=== PATIENT | male | born 1995 | race Caucasian/White ===

== ENCOUNTER 2016-05-07 16:31 | Emergency (ER) | payer OTHER ==
[~2016-05-07] VITALS: Ht 170.2 cm; Wt 64.8 kg
[2016-05-07 16:33] VITALS: BP 133/83; PULSE 113; TEMP 37; O2SAT 97; Ht 170.2 cm; Wt 64.8 kg
[2016-05-07] MEDS ORDERED: MULT-513 PO (16:40)
[2016-05-07] MEDS ORDERED: MUCINEX PO (16:40)
[2016-05-07] MEDS ORDERED: AMOX500C3 PO (17:33)
[2016-05-07] MEDS ORDERED: AMOXICILLIN 250 MG CAP PO STA (17:33)
--- NOTE | 2016-05-07 17:33 | EMERGENCY ROOM VISIT NOTE ---
ED Visit Note First contact with patient: 16:49 Chief Complaint: Sore/Swollen Throat, Stuffed Nose, Cough History of Present Illness: Patient is a 20-year-old male who presents to the emergency department by private vehicle for evaluation of his nasal congestion and sore throat. The patient reports that his symptoms developed approximately 48 hours ago. He reports he initially started with a sore throat and nasal congestion. He has had a mild nonproductive his cough as well recently. The patient reports a significant past medical history of strep throat infections. He had a tonsillectomy performed several years ago. The patient denies any fevers. He does report feeling chilled. He denies any recent sick contacts. He rates his current discomfort as a 6/10. He denies any headaches, dizziness, lightheadedness, neck pain/stiffness, nausea, vomiting, chest pain, palpitations , shortness of breath. Medications: No current medications. Allergies: Hydrocortisone PMH: As above. SHx: Patient is a 20-year-old male who lives locally. ROS: All pertinent positive and negative review of systems are appropriately documented in the History of Present Illness. Physical Exam: VITAL SIGNS - Vital signs and nursing notes were reviewed. GENERAL - Well nourished, well developed 20-year-old male in no acute distress. Pt communicates well with provider and answers questions appropriately. SKIN - Without rash. HEAD - NC/AT with no obvious deformities. EYES - PERRL with EOMI bilaterally. Sclera without injection. Palpebral conjunctiva pink and moist. EARS - No deformities of external structures noted on gross examination bilaterally. No pain elicited with palpation of the tragus bilaterally. External auditory canals without discharge or otorrhea. Tympanic membranes pearly thakkar without retraction or bulging. No fluid or purulent material visualized behind the TM. Handle of malleus, umbo, cone of light, pars tensa/ flaccid all easily visualized. NOSE - Midline and without cyanosis. No purulent drainage noted. Nasal mucosa without mucus discharge. MOUTH/OROPHARYNX - Without perioral cyanosis. Buccal mucosa pink and moist and without leukoplakia. Tongue midline with no palate deviation. No tonsillar hypertrophy appreciated. No kissing tonsils. No trismus. Moderate erythema and hyperemia noted to the posterior oropharynx. Good dentition noted. No muffled voice. NECK - Neck with FROM. Supple to palpation. No lymphadenopathy noted. No nuchal rigidity. ED Course: Patient was seen and evaluated by myself. Rapid strep was obtained. Rapid strep was found to be negative. I did have a lengthy discussion with the patient regarding his ongoing symptoms. The patient does have a significant past medical history of strep. Strep culture is pending at this point, however given the patient's physical exam findings, I'm concerned that the patient is likely going to grow out strep. He'll be covered prophylactically with amoxicillin orally. He'll follow-up with his primary care provider from today' s visit or return for any changing/worsening symptoms. Patient discharged home afebrile and in good condition. In the evaluation and treatment of this patient, the following differential diagnoses were considered: Strep, mono, retropharyngeal abscess, peritonsillar abscess, amongst others. Impression: Pharyngitis, Viral URI Discharge Instructions: You were seen in the emergency department for your sore throat. The results of your rapid strep screen were found to be NEGATIVE. You will be contacted in 48- 72 hrs with the results of your pending strep culture. You were prescribed Amoxicillin to be taken as prescribed. This is an antibiotic. All antibiotics have the potential to cause diarrhea. Stop this medication and contact a medical provider if you were to develop any significant adverse side effects including: wheezing, shortness of breath, passing out, vomiting, or a diffuse rash. Always take antibiotics as directed and COMPLETE the ENTIRE course regardless of the improvement of your symptoms. For pain and fever control, you can use the following [id number]-xiomree medicines (if >12 yo): - Regular strength (325mg/tab) Tylenol (acetaminophen) 2 tabs every 4-6 hours as needed. Do not exceed 12 tablets in a 24 hour period. Avoid taking more than 4 grams (4000 mg) of Tylenol per day. This includes any other sources of acetaminophen you may take on a regular basis. - Regular strength (200 mg/tab) Advil (ibuprofen) 1-2 tabs every 4-6 hours as needed. Do not exceed a dose of 3200 mg per day. - For best results, alternate dosing of Tylenol and Advil. In addition to your prescribed medications, you can also use the following home remedies: - Warm salt-water gargles 3 times per day can soothe your throat and help to fight infection. - Warm tea with honey can soothe your throat. Return to the emergency department if your symptoms persist or worsen over the next 2-3 days despite treatment course outlined above. Return to the emergency department if you develop the following symptoms of: inability to swallow solids , liquids, or drool; excessive wheezing or inability to catch your breath; or intractable fever or pain. Follow up with your primary care provider in 2-3 days from today's emergency department visit. Problem List Surgical Problems: (1) History of tonsillectomy Status: Resolved Current/Historical Medications Scheduled Amoxicillin (Amoxil), 500 MG PO TID Multivitamins/Minerals (Mvi With Minerals), 1 TAB PO DAILY [Mucinex Liq], 1 DOSE PO PRN UD Allergies Coded Allergies: Hydrocortisone (Verified Allergy, Unknown, Unknown, 11/23/15) Reported by sister Vital Signs Date Time Temp Pulse Resp B/P Pulse Ox O2 Delivery O2 Flow Rate FiO2 05/07/16 16:33 37.0 113 18 133/83 97 Room Air Medications Administered Medications (Trade) Dose Ordered Sig/Vianney Route Start Time Stop Time Status Last Admin Dose Admin Amoxicillin (Amoxil Cap) 500 mg NOW STAT PO 05/07/16 17:33 05/07/16 17:34 DC 05/07/16 17:37 500 MG Departure Information Impression Primary Impression: Pharyngitis Additional Impression: Viral URI Dispostion Home / Self-Care Condition GOOD Prescriptions Amoxicillin (AMOXIL) 500 Mg Cap 500 MG PO TID for 10 Days, #30 CAP Prov: Gregor Aponte PA-C 05/07/16 Referrals No Doctor, Assigned (PCP) Patient Instructions ED Pharyngitis Viral Report Pending, My [facility] Additional Instructions You were seen in the emergency department for your sore throat. The results of your rapid strep screen were found to be NEGATIVE. You will be contacted in 48- 72 hrs with the results of your pending strep culture. You were prescribed Amoxicillin to be taken as prescribed. This is an antibiotic. All antibiotics have the potential to cause diarrhea. Stop this medication and contact a medical provider if you were to develop any significant adverse side effects including: wheezing, shortness of breath, passing out, vomiting, or a diffuse rash. Always take antibiotics as directed and COMPLETE the ENTIRE course regardless of the improvement of your symptoms. For pain and fever control, you can use the following [id number]-ijo-hmvwehx medicines (if >12 yo): - Regular strength (325mg/tab) Tylenol (acetaminophen) 2 tabs every 4-6 hours as needed. Do not exceed 12 tablets in a 24 hour period. Avoid taking more than 4 grams (4000 mg) of Tylenol per day. This includes any other sources of acetaminophen you may take on a regular basis. - Regular strength (200 mg/tab) Advil (ibuprofen) 1-2 tabs every 4-6 hours as needed. Do not exceed a dose of 3200 mg per day. - For best results, alternate dosing of Tylenol and Advil. In addition to your prescribed medications, you can also use the following home remedies: - Warm salt-water gargles 3 times per day can soothe your throat and help to fight infection. - Warm tea with honey can soothe your throat. Return to the emergency department if your symptoms persist or worsen over the next 2-3 days despite treatment course outlined above. Return to the emergency department if you develop the following symptoms of: inability to swallow solids , liquids, or drool; excessive wheezing or inability to catch your breath; or intractable fever or pain. Follow up with your primary care provider in 2-3 days from today's emergency department visit. Problem Qualifiers Primary Impression: Pharyngitis Pharyngitis/tonsillitis etiology: unspecified etiology Qualified Codes: J02.9 - Acute pharyngitis, unspecified
== END 2016-05-07 17:44 | disposition home or self-care (01) ==
LOC: C.EDB 16:31 → C.EDD 17:44
DX: J02.9 Acute pharyngitis, unspecified (principal)

== ENCOUNTER 2017-05-09 04:03 | Emergency (ER) | payer OTHER ==
[~2017-05-09] VITALS: Ht 170.2 cm; Wt 70.9 kg
[~2017-05-09 04:03] MED LIST: MUCINEX PO; MULT-513 PO
[2017-05-09 04:06] VITALS: Ht 170.2 cm; Wt 70.9 kg
[2017-05-09 04:21] VITALS: TEMP 36.4
[2017-05-09] MEDS ORDERED: XYLOCAINE 1%/SOD BICARB 20 ML VIAL INFIL ONE (04:30)
[2017-05-09 05:03] VITALS: BP 122/84; PULSE 94; O2SAT 98
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
== END 2017-05-09 05:44 | disposition home or self-care (01) ==
LOC: C.EDB 04:06 → C.EDA 05:44
DX: S01.01XA Laceration without foreign body of scalp, initial encounter (principal); V89.2XXA Person injured in unspecified motor-vehicle accident, traffic, initial encounter; Y92.828 Other wilderness area as the place of occurrence of the external cause

== ENCOUNTER 2017-05-20 21:15 | Emergency (ER) | payer OTHER ==
[~2017-05-20] VITALS: Ht 175.3 cm; Wt 71.5 kg
[2017-05-20 21:18] VITALS: BP 137/85; PULSE 110; TEMP 36.6; O2SAT 98; Ht 175.3 cm; Wt 71.5 kg
--- NOTE | 2017-05-20 21:29 | EMERGENCY ROOM VISIT NOTE ---
ED Visit Note First contact with patient: 21:21 CHIEF COMPLAINT: Suture removal This patient returns to the ED today for removal of sutures that were placed 11 days ago. There has been no swelling, redness, or drainage from the wound. The patient feels like the laceration is healing well. REVIEW OF SYSTEMS: A 6-point Review of Systems was discussed with the patient , with pertinent positives and negatives listed in the History of Present Illness. All remaining Review of Systems questions can be considered negative unless otherwise specified. PMH: The patient is healthy; there is no significant medical or surgical history. SOCIAL HISTORY: Patient lives at home. PHYSICAL EXAM: Vital Signs: Reviewed Nurse's notes. There is a sutured wound on the L scalp with no signs of infection. There is no erythema, swelling, or tenderness. EMERGENCY DEPARTMENT COURSE: The sutures were removed without any difficulty and there was no separation of the wound edges. Problem List Surgical Problems: (1) History of tonsillectomy Status: Resolved Current/Historical Medications No Active Prescriptions or Reported Meds Allergies Coded Allergies: Hydrocortisone (Verified Allergy, Unknown, Unknown, 05/09/17) Reported by sister Vital Signs Date Time Temp Pulse Resp B/P (MAP) Pulse Ox O2 Delivery O2 Flow Rate FiO2 05/20/17 21:18 36.6 110 18 137/85 98 Room Air Departure Information Impression Primary Impression: Encounter for removal of andres Dispostion Home / Self-Care Condition GOOD Prescriptions No Active Prescriptions or Reported Meds Referrals No Doctor, Assigned (PCP) Patient Instructions [facility] Additional Instructions DISCHARGE INSTRUCTIONS AND TREATMENT: Wash any remaining crusts off of the wound today and resume your normal activities.
== END 2017-05-20 21:38 | disposition home or self-care (01) ==
LOC: C.EDB 21:17 → C.EDD 21:38
DX: S01.01XD Laceration without foreign body of scalp, subsequent encounter (principal); X58.XXXD Exposure to other specified factors, subsequent encounter